=== PATIENT | male | born 1960 | race Caucasian/White ===

== ENCOUNTER 2023-11-20 00:07 | Inpatient (IN) | payer BC, OTHER ==
[2023-11-20] MEDS ORDERED: NITROGLYCERIN SUBLINGUAL 1/150 0.4 MG TAB ONE (00:17)
[2023-11-20] MEDS: NITROGLYCERIN 25MG/D5W 250ML 25 MG/250 ML ML IVPB SCH (00:27)
[2023-11-20] MEDS: NITROGLYCERIN SUBLINGUAL 1/150 0.4 MG TAB SL ONE (00:27)
[2023-11-20 00:31] VITALS: BMI 33.4
[2023-11-20 00:54] LABS: EOS % 2.1 % (0-4.5); HEMATOCRIT 30.1 % (35.4-49); HEMOGLOBIN 9.5 GM/dL (11.7-16.9); LYMPH % 15.7 % (8-40); MCH 27.7 pg (25.7-33.7); MCHC 31.7 g/dl (32.0-35.9); MEAN CELL VOLUME 87.3 fl (80-96); MEAN PLT VOLUME 8.1 fl (7.5-11.1); NEUT % 74.2 % (42.8-82.8); PLATELET COUNT 413 10^3/uL (134-434); RBC 3.45 M/mm3 (4.00-5.60); RDW 17.7 % (11.9-15.9); WHITE BLOOD COUNT 11.1 K/mm3 (4.0-10.0)
[2023-11-20 00:58] LABS: INR 1.54 (0.83-1.09); PROTHROMBIN TIME (PATIENT) 17.2 SEC (9.7-13.0)
[2023-11-20 00:59] LABS: VENOUS BASE EXCESS -5.5 mmol/L (-2-2); VENOUS PCO2 45.3 mmHg (38-52); VENOUS PH 7.286 (7.310-7.410)
[2023-11-20 01:01] LABS: ACTIVATED PTT 38.8 SECONDS (25.2-36.5)
[2023-11-20 01:31] LABS: CALCIUM 9.1 mg/dL (8.5-10.1)
[2023-11-20 01:32] LABS: ALBUMIN 3.6 g/dl (3.4-5.0); BLOOD UREA NITROGEN 53.6 mg/dL (7-18)
[2023-11-20 01:36] LABS: BILIRUBIN,TOTAL 0.4 mg/dL (0.2-1)
[2023-11-20 01:40] LABS: N-TERMINAL BNP 12167.1 pg/ml (5-125)
[2023-11-20 01:41] LABS: CREATININE 7.4 mg/dL (0.55-1.3)
[2023-11-20] MEDS: FUROSEMIDE 40 MG/4 ML INJECTABLE VIAL IVPUSH ONE (02:58)
[2023-11-20] MEDS ORDERED: NITROGLYCERIN 2% OINTMENT - 1GM PACKET TD ONE (05:20)
[2023-11-20] MEDS: NITROGLYCERIN 2% OINTMENT - 1GM PACKET TD ONE (05:23)
[2023-11-20] MEDS: PATIENT'S OWN MEDICATION (NON-FORMULARY) (Alprazolam [Alprazolam] 0.5 MG Tablet) PO SCH (05:49)
[2023-11-20 07:30] LABS: CHLORIDE 106 mmol/L (98-107); POTASSIUM 5.3 mmol/L (3.5-5.1); SODIUM 140 mmol/L (136-145)
[2023-11-20 07:32] LABS: ALBUMIN 3.1 g/dl (3.4-5.0); ANION GAP 9 mmol/L (4-13); BLOOD UREA NITROGEN 61.5 mg/dL (7-18); CO2 25 mmol/L (21-32); GLUCOSE,RANDOM 102 mg/dL (74-106); MAGNESIUM 1.9 mg/dL (1.8-2.4)
[2023-11-20 07:36] LABS: SGOT/AST 20 U/L (15-37); SGPT/ALT 36 U/L (13-61)
[2023-11-20 07:37] LABS: PHOSPHOROUS 3.8 mg/dL (2.5-4.9)
[2023-11-20 07:38] LABS: BILIRUBIN,TOTAL 0.8 mg/dL (0.2-1); TOT PROT 7.1 g/dl (6.4-8.2)
[2023-11-20 07:39] LABS: ALK PHOS 173 U/L (45-117)
[2023-11-20 07:41] LABS: BASO % 0.8 % (0-2.0); EOS % 0.5 % (0-4.5); HEMATOCRIT 25.4 % (35.4-49); HEMOGLOBIN 8.1 GM/dL (11.7-16.9); LYMPH % 11.8 % (8-40); MCH 28.4 pg (25.7-33.7); MEAN CELL VOLUME 88.6 fl (80-96); MEAN PLT VOLUME 8.1 fl (7.5-11.1); MONO % 7.6 % (3.8-10.2); NEUT % 79.3 % (42.8-82.8); PLATELET COUNT 241 10^3/uL (134-434); RBC 2.87 M/mm3 (4.00-5.60); RDW 17.7 % (11.9-15.9)
[2023-11-20] MEDS ORDERED: SODIUM CHLORIDE 250 ML IV PRN (10:38)
[2023-11-20] MEDS: SEVELAMER CARBONATE 800 MG TAB (FP) PO SCH (12:46)
[2023-11-20] MEDS: levETIRAcetam 500 MG TABLET (FP) PO SCH (12:47)
[2023-11-20] MEDS: LACOSAMIDE 50 MG TABLET PO SCH (12:47)
[2023-11-20] MEDS: TOPIRAMATE 100 MG TABLET PO SCH (12:47)
[2023-11-20] MEDS: PANTOPRAZOLE 40 MG TABLET PO SCH (12:47)
[2023-11-20] MEDS: ATORVASTATIN CA 10 MG TABLET (FP) PO SCH (12:48)
[2023-11-20] MEDS: ALPRAZolam 0.25 MG TABLET PO SCH (12:48)
[2023-11-20] MEDS: GABAPENTIN 300 MG CAPSULE PO SCH (12:48)
[2023-11-20] MEDS: EPOETIN ALFA-EPBX 10,000 UNIT/ML VIAL SQ ONE (14:31)
[2023-11-20] MEDS: ACETAMINOPHEN 325 MG TABLET (FP) PO PRN (15:52)
[2023-11-20] MEDS: cycloSPORINE (SANDIMMUNE) 25 MG CAPSULE PO SCH (17:33)
[2023-11-20] MEDS: APIXABAN 5 MG TABLET PO SCH (17:34)
[2023-11-20] MEDS: CARVEDILOL 3.125 MG TABLET (FP) PO SCH (17:34)
[2023-11-20] MEDS: LEVOTHYROXINE NA 50 MCG TABLET (FP) PO SCH (17:35)
[2023-11-20] MEDS: CEFTRIAXONE 1 GM in DEXTROSE 5%-WATER - 50 ML IVPB SCH (17:35)
[2023-11-21 12:04] LABS: HEMATOCRIT 26.2 % (35.4-49); HEMOGLOBIN 8.4 GM/dL (11.7-16.9); MCH 28.4 pg (25.7-33.7); MCHC 31.9 g/dl (32.0-35.9); MEAN CELL VOLUME 89.1 fl (80-96); MEAN PLT VOLUME 8.4 fl (7.5-11.1); PLATELET COUNT 180 10^3/uL (134-434); RBC 2.94 M/mm3 (4.00-5.60)
[2023-11-21 12:24] LABS: POTASSIUM 4.7 mmol/L (3.5-5.1)
[2023-11-21 12:25] LABS: CALCIUM 8.8 mg/dL (8.5-10.1)
[2023-11-21 12:27] LABS: BLOOD UREA NITROGEN 42.5 mg/dL (7-18)
[2023-11-21 12:29] LABS: CREATININE 6.2 mg/dL (0.55-1.3)
[2023-11-21] MEDS ORDERED: SODIUM CHLORIDE 250 ML IV PRN (12:53)
[2023-11-21] MEDS ORDERED: TUBERCULIN PPD 5 TU/0.1ML SYRINGE (IN PATIENT USE ONLY) ID ONE ×2 (14:37→17:15)
[2023-11-21] MEDS: TUBERCULIN PPD 5 TU/0.1ML SYRINGE (IN PATIENT USE ONLY) ID ONE (17:29)
[2023-11-21] MEDS: [UNRECOGNIZED DRUG - OTHER] IV SCH (18:06)
[2023-11-21] MEDS: IRON SUCROSE COMPLEX 100 MG/5 ML IV SCH (18:06)
[2023-11-22] MEDS: EPOETIN ALFA-EPBX 10,000 UNIT/ML VIAL SQ ONE (10:43)
[2023-11-22 11:03] LABS: HEMATOCRIT 24.5 % (35.4-49); MCH 28.6 pg (25.7-33.7); MCHC 32.7 g/dl (32.0-35.9); MEAN CELL VOLUME 87.4 fl (80-96); RDW 18.1 % (11.9-15.9)
[2023-11-22 11:04] LABS: WHITE BLOOD COUNT 7.7 K/mm3 (4.0-10.0)
[2023-11-22 11:18] LABS: POTASSIUM 4.6 mmol/L (3.5-5.1)
[2023-11-22 11:27] LABS: BLOOD UREA NITROGEN 53.5 mg/dL (7-18); CALCIUM 9.1 mg/dL (8.5-10.1)
[2023-11-22 11:30] LABS: CREATININE 7.2 mg/dL (0.55-1.3)
[2023-11-23 08:09] LABS: HEMATOCRIT 26.7 % (35.4-49); HEMOGLOBIN 8.5 GM/dL (11.7-16.9); MCH 28.3 pg (25.7-33.7); MCHC 31.9 g/dl (32.0-35.9); MEAN CELL VOLUME 88.5 fl (80-96); MEAN PLT VOLUME 8.5 fl (7.5-11.1); PLATELET COUNT 214 10^3/uL (134-434); RBC 3.02 M/mm3 (4.00-5.60); RDW 17.4 % (11.9-15.9); WHITE BLOOD COUNT 5.1 K/mm3 (4.0-10.0)
[2023-11-23 08:17] LABS: BLOOD UREA NITROGEN 31.2 mg/dL (7-18); CALCIUM 8.8 mg/dL (8.5-10.1)
[2023-11-23 08:21] LABS: CREATININE 5.1 mg/dL (0.55-1.3)
[2023-11-23] MEDS: BISACODYL 5 MG TABLET.DR (FP) PO PRN (10:33)
[2023-11-24] MEDS ORDERED: SODIUM CHLORIDE 250 ML IV PRN (07:41)
[2023-11-24 08:12] LABS: HEMATOCRIT 25.3 % (35.4-49); HEMOGLOBIN 8.2 GM/dL (11.7-16.9); MCH 28.6 pg (25.7-33.7); MCHC 32.4 g/dl (32.0-35.9); MEAN CELL VOLUME 88.3 fl (80-96); MEAN PLT VOLUME 8.3 fl (7.5-11.1); PLATELET COUNT 209 10^3/uL (134-434); RBC 2.87 M/mm3 (4.00-5.60); RDW 17.8 % (11.9-15.9); WHITE BLOOD COUNT 6.4 K/mm3 (4.0-10.0)
[2023-11-24 08:37] LABS: CALCIUM 8.9 mg/dL (8.5-10.1)
[2023-11-24 08:38] LABS: BLOOD UREA NITROGEN 43.5 mg/dL (7-18)
[2023-11-24 08:41] LABS: CREATININE 6.4 mg/dL (0.55-1.3)
[2023-11-24] MEDS: EPOETIN ALFA-EPBX 10,000 UNIT/ML VIAL IVPUSH ONE (10:44)
[2023-11-25 08:52] LABS: HEMATOCRIT 26.2 % (35.4-49); HEMOGLOBIN 8.2 GM/dL (11.7-16.9); MCH 27.8 pg (25.7-33.7); MCHC 31.4 g/dl (32.0-35.9); MEAN CELL VOLUME 88.3 fl (80-96); MEAN PLT VOLUME 8.4 fl (7.5-11.1); PLATELET COUNT 208 10^3/uL (134-434); RBC 2.97 M/mm3 (4.00-5.60); RDW 18.1 % (11.9-15.9); WHITE BLOOD COUNT 6.4 K/mm3 (4.0-10.0)
[2023-11-25 08:57] LABS: POTASSIUM 3.9 mmol/L (3.5-5.1)
[2023-11-25 09:04] LABS: CALCIUM 8.7 mg/dL (8.5-10.1)
[2023-11-25 09:05] LABS: BLOOD UREA NITROGEN 30.4 mg/dL (7-18)
[2023-11-25 09:08] LABS: CREATININE 5.1 mg/dL (0.55-1.3)
[2023-11-25] MEDS: ALPRAZolam 0.25 MG TABLET PO PRN (22:28)
[2023-11-26 09:32] LABS: HEMATOCRIT 28.8 % (35.4-49); HEMOGLOBIN 9.3 GM/dL (11.7-16.9); MCH 28.2 pg (25.7-33.7); MCHC 32.2 g/dl (32.0-35.9); MEAN CELL VOLUME 87.7 fl (80-96); MEAN PLT VOLUME 8.1 fl (7.5-11.1); PLATELET COUNT 231 10^3/uL (134-434); RBC 3.28 M/mm3 (4.00-5.60); RDW 18.2 % (11.9-15.9); WHITE BLOOD COUNT 6.5 K/mm3 (4.0-10.0)
[2023-11-26 09:50] LABS: POTASSIUM 4.2 mmol/L (3.5-5.1)
[2023-11-26 09:51] LABS: CALCIUM 9.5 mg/dL (8.5-10.1)
[2023-11-26 09:52] LABS: BLOOD UREA NITROGEN 50.3 mg/dL (7-18)
[2023-11-26 09:55] LABS: CREATININE 6.5 mg/dL (0.55-1.3)
[2023-11-26] MEDS ORDERED: ALPRAZolam 0.25 MG TABLET PO PRN (23:12)
[2023-11-26] MEDS ORDERED: ACETAMINOPHEN 325 MG TABLET (FP) PO PRN (23:12)
[2023-11-26] MEDS ORDERED: BISACODYL 5 MG TABLET.DR (FP) PO PRN (23:12)
[2023-11-27] MEDS: PANTOPRAZOLE 40 MG TABLET PO SCH (06:13)
[2023-11-27] MEDS: LEVOTHYROXINE NA 50 MCG TABLET (FP) PO SCH (06:14)
[2023-11-27] MEDS: SEVELAMER CARBONATE 800 MG TAB (FP) PO SCH (08:30)
[2023-11-27] MEDS ORDERED: SODIUM CHLORIDE 250 ML IV PRN (09:14)
[2023-11-27 09:25] LABS: HEMOGLOBIN 9.5 GM/dL (11.7-16.9); MCHC 31.7 g/dl (32.0-35.9); MEAN CELL VOLUME 88.3 fl (80-96); MEAN PLT VOLUME 8.5 fl (7.5-11.1); PLATELET COUNT 213 10^3/uL (134-434); RDW 18.1 % (11.9-15.9)
[2023-11-27 09:41] LABS: CHLORIDE 102 mmol/L (98-107); POTASSIUM 4.7 mmol/L (3.5-5.1); SODIUM 137 mmol/L (136-145)
[2023-11-27 09:44] LABS: CALCIUM 9.5 mg/dL (8.5-10.1)
[2023-11-27 09:45] LABS: ANION GAP 9 mmol/L (4-13); BLOOD UREA NITROGEN 65.9 mg/dL (7-18); CO2 26 mmol/L (21-32); GLUCOSE,RANDOM 110 mg/dL (74-106)
[2023-11-27 09:49] LABS: CREATININE 7.5 mg/dL (0.55-1.3)
[2023-11-27] MEDS ORDERED: ACETAMINOPHEN 325 MG TABLET (FP) PO PRN (10:54)
[2023-11-27] MEDS: EPOETIN ALFA-EPBX 4,000 UNIT/ML VIAL SQ ONE (11:50)
[2023-11-27] MEDS: TOPIRAMATE 100 MG TABLET PO SCH (12:07)
[2023-11-27] MEDS: LACOSAMIDE 50 MG TABLET PO SCH (12:07)
[2023-11-27] MEDS: GABAPENTIN 300 MG CAPSULE PO SCH (12:07)
[2023-11-27] MEDS: APIXABAN 5 MG TABLET PO SCH (12:07)
[2023-11-27] MEDS: levETIRAcetam 500 MG TABLET (FP) PO SCH (12:08)
[2023-11-27] MEDS: CARVEDILOL 3.125 MG TABLET (FP) PO SCH (12:08)
[2023-11-27] MEDS: cycloSPORINE (SANDIMMUNE) 25 MG CAPSULE PO SCH (12:09)
[2023-11-27 14:50] VITALS: BP 119/73; PULSE 72; RESP 20; TEMP 97.2
[2023-11-27] MEDS ORDERED: ATORVASTATIN CA 20 MG TABLET (FP) PO SCH (22:00)
== END 2023-11-27 17:35 | disposition home or self-care (01) | DRG 189 ==
LOC: JER 00:07 → JERBED 02:07 → J4W 08:13 → J6S 11-26 22:55
PROVIDERS: ADMIT Internal Medicine; ATTEND Internal Medicine
PROC: 5A1D70Z Performance of Urinary Filtration, Intermittent, Less than 6 Hours Per Day (ICD-10-PCS; principal; 2023-11-20)
PROC: 5A1D70Z Performance of Urinary Filtration, Intermittent, Less than 6 Hours Per Day (ICD-10-PCS; 2023-11-22)
PROC: 5A1D70Z Performance of Urinary Filtration, Intermittent, Less than 6 Hours Per Day (ICD-10-PCS; 2023-11-24)
PROC: 5A1D70Z Performance of Urinary Filtration, Intermittent, Less than 6 Hours Per Day (ICD-10-PCS; 2023-11-27)
DX: J81.0 Acute pulmonary edema (principal); J96.01 Acute respiratory failure with hypoxia; N18.6 End stage renal disease; I12.0 Hypertensive chronic kidney disease with stage 5 chronic kidney disease or end stage renal disease; I48.19 Other persistent atrial fibrillation; E03.9 Hypothyroidism, unspecified; E78.5 Hyperlipidemia, unspecified; D64.9 Anemia, unspecified; E87.70 Fluid overload, unspecified; I16.0 Hypertensive urgency; I44.7 Left bundle-branch block, unspecified; G40.909 Epilepsy, unspecified, not intractable, without status epilepticus; Z95.2 Presence of prosthetic heart valve; Z99.2 Dependence on renal dialysis
CPT/HCPCS: 0241U-QW; 36415; 71045-TC-FY; 76604; 80048; 80053; 82803; 82962; 83605; 83735; 83880; 84100; 84484; 85025; 85027; 85379; 85610; 85730; 86480; 86705; 86803; 86850; 86900; 86901; 87040; 87340; 87517; 93005; 93010; 93306-TC; 93308; 94660; 97116-GP; 97161-GP; 99291; Q5106